=== PATIENT | female | born 1960 | race Caucasian/White ===

== ENCOUNTER 2020-01-28 16:00 | Emergency (ER) | payer OTHER ==
[~2020-01-28] VITALS: Ht 172.7 cm; Wt 95.2 kg
[~2020-01-28 16:00] MED LIST: AZIT250 PO; BUSP10; CEPH500 PO; CLON1; CYCL10; CYCL10 PO; DULO30; DULO60 PO; ESTR.05TPB; ESTR1 PO; HYDACE5 PO; LEVSOD100; LEVSOD100 PO; NAPR500 PO; NAPR550 PO; OXYACE5T PO; OXYC5; OXYC5 PO; PROM25 PO; RXPROM25 PO; TRAZ100; TRAZ100 PO; [UNRECOGNIZED DRUG - REMARK]
== END 2020-01-28 17:17 | disposition home or self-care (01) ==
LOC: ER 16:00
DX: F41.0 Panic disorder [episodic paroxysmal anxiety] (principal); Z88.0 Allergy status to penicillin; Z88.2 Allergy status to sulfonamides; Z88.1 Allergy status to other antibiotic agents; Z79.899 Other long term (current) drug therapy
CPT/HCPCS: 99282

== ENCOUNTER 2024-06-06 18:19 | Emergency (ER) | payer OTHER ==
[~2024-06-06] VITALS: Ht 170.2 cm; Wt 83.9 kg
[~2024-06-06 18:19] MED LIST changes: +BUPRENORPHIN-N1 EAC5 PO
[2024-06-06 19:17] VITALS: BP 152/105
== END 2024-06-06 20:24 | disposition home or self-care (01) ==
LOC: ER 18:19
DX: K59.00 Constipation, unspecified (principal); Z88.0 Allergy status to penicillin; Z88.2 Allergy status to sulfonamides; Z88.1 Allergy status to other antibiotic agents; Z79.899 Other long term (current) drug therapy
CPT/HCPCS: 74018; 99283-25